=== PATIENT | male | born 1940 | race Caucasian/White ===

== ENCOUNTER 2023-09-21 13:38 | Outpatient (CLI) | payer MEDICARE, OTHER ==
--- NOTE | 2023-09-21 16:23 | XRAY Report ---
PROCEDURE: Hand 3+V BL INDICATIONS: BILATERAL HAND PAIN TECHNIQUE: 3 views of the hand(s) acquired. COMPARISON: None. FINDINGS: Bones: No fractures or dislocations. No suspicious bony lesions. Interphalangeal and first CMC j oint space narrowing with bulky osteophytes. Soft tissues: No suspicious soft tissue calcifications or masses. 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 Reviewed by: Angel Prescott MD on 09/21/2023 4:22 PM PST Approved by: Angel Prescott MD on 09/21/2023 4:22 PM PST Station ID: [id number]
== END 2023-09-21 13:39 | disposition home or self-care (01) ==
LOC: DI 13:38
PROVIDERS: ATTEND Student in an Organized Health Care Education/Training Program
DX: M25.741 Osteophyte, right hand (principal); M25.742 Osteophyte, left hand

== ENCOUNTER 2023-12-01 12:45 | Outpatient (CLI) | payer MEDICARE, OTHER ==
--- NOTE | 2023-12-01 14:51 | MRI Report ---
Lumbar Spine WO Clinical History: 83 years of age, Male, SPINAL STENOSIS. Comparison: No priors available Technique: Multiplanar multisequence lumbar spine MRI without contrast was performed. Findings: Prior surgery: Posterior fusions instrumentation with interbody spacer at L4-S1. Vertebral bodies: Vertebral body heights are maintained. Alignment: Mild straightening of the lumbar spine. Grade 1 anterolisthesis of L3 on L4. Bone marrow: Mild fibrovascular endplate change at T12-L1. Intervertebral discs: Multilevel disc bulge and disc desiccation. The conus medullaris is normal in contour, signal intensity, and location. The tip of the conus is at L1 to. The following axial levels are detailed below: T12-L1: Mild disc bulge. No central canal stenosis. No right neuroforaminal stenosis. No left neurofo raminal stenosis. L1-L2: Mild disc bulge. Mild bilateral facet arthropathy. No central canal stenosis. No right neurofo raminal stenosis. No left neuroforaminal stenosis. L2-L3: Disc bulge. Mild bilateral facet arthropathy with ligamentum flavum hypertrophy. Severe centra l canal stenosis. Mild right neuroforaminal stenosis. No left neuroforaminal stenosis. L3-L4: Disc bulge. Moderate bilateral facet arthropathy with ligamentum flavum hypertrophy. Severe ce ntral canal stenosis. Mild right neuroforaminal stenosis. Mild left neuroforaminal stenosis. L4-L5: Left laminotomy with small amount of fluid in the postsurgical bed. No central canal stenosis. Mild right neuroforaminal stenosis. Mild left neuroforaminal stenosis. L5-S1: No central canal stenosis. Mild right neuroforaminal stenosis. Mild left neuroforaminal stenos is. Visualized sacrum and pelvis: Visualized sacrum is intact. No abdominal aortic aneurysm. IMPRESSION: 1.Posterior fusion instrumentation with interbody spacer at L4-S1. Left laminotomy at L4-5 with small amount of fluid in the postsurgical bed. 2.Multilevel degenerative changes of the lumbar spine, most pronounced at L2-3 L3-4, there is severe central canal stenosis. 3.Additional neuroforaminal stenosis as described above. Reviewed by: Kailee Lopez MD on 12/01/2023 2:49 PM PDT Approved by: Kailee Lopez MD on 12/01/2023 2:49 PM PDT Station ID: [id number]
== END 2023-12-01 12:46 | disposition home or self-care (01) ==
LOC: DI 12:45
PROVIDERS: ATTEND Orthopaedic Surgery Orthopaedic Surgery of the Spine
DX: M48.062 Spinal stenosis, lumbar region with neurogenic claudication (principal); M47.816 Spondylosis without myelopathy or radiculopathy, lumbar region; Z98.1 Arthrodesis status